=== PATIENT | female | born 1970 | race Caucasian/White ===

== ENCOUNTER 2019-07-25 21:30 | Observation (INO) | payer OTHER ==
--- NOTE | 2019-07-25 22:34 | ED Physician Documentation ---
Fall - HISTORIAN Historian: patient, spouse, paramedics - HPI Stated Complaint: Fall down steps, Lt lateral ribcage pain Chief Complaint: Fall Additional Information: 48 year old female presents via [facility] s/p fall. Patient states that she is a heavy drinker and walked by the stairs and fell down 6 steps; she remembers the fall; no LOC. Patient denies head or neck pain; c/o left rib pain. She states that she drinks every night "ALOT". She states that she works. She smokes more than a pack per day. She has no plans to quit drinking; states that he has been trying to get her to quit but she refuses. No evidence of extremity injury. Onset: just prior to arrival Where: home Context: tripped, lost balance r: moderate Associated Symptoms:: no loss of consciousness Location of Pain/Injury: other (left rib) Injury to Right Extremity: none Injury to Left Extremity: none - ROS CONST: no problems NEURO: denies: dizziness MS/SKIN/LYMPH: denies: weakness EYES/ENT: none CVS/RESP: none GI/: denies: nausea, vomiting - PAST HX Past History: other (Depression, Alcohol abuse) Immunizations: UTD Allergies/Adverse Reactions: Allergies Allergy/AdvReac Type Severity Reaction Status Date / Time No Known Allergies Allergy Verified 07/25/19 21:49 Home Medications: Ambulatory Orders Medication Instructions Recorded Chlorthalidone 25 mg PO DAILY 07/25/19 Gabapentin [Neurontin] 600 mg PO TID 07/25/19 Sertraline HCl 100 mg PO DAILY 07/25/19 - SOCIAL HX Smoking History: greater than 1 pack/day Alcohol Use: heavy Drug Use: none - FAMILY HX Family History: none - VITAL SIGNS Vital Signs: Vital Signs Temp Pulse Resp BP Pulse Ox 91 H 18 137/83 89 L 07/25/19 21:30 07/25/19 21:30 07/25/19 21:30 07/25/19 21:30 - REVIEWED ASSESSMENTS Nursing Assessment Reviewed: Yes Vitals Reviewed: Yes ED Results Lab/Radiology - Radiology Radiology Impressions: EXAMINATION: CT BRAIN W/O CONTRAST HISTORY: PT FELL DOWN 6 STAIRS, ALCOHOL USE (Hx) / ITS.REASON fall down 6 stairs- alcohol use Note time : 07/25/2019 10:30:54 PM User : Esvin Martinez FALL DOWN 6 STAIRS (DICOM Hx) (DICOM Hx) TECHNIQUE: CT of the head was performed without contrast according to standard protocol. COMPARISON: None FINDINGS: No acute intra- or extra-axial fluid collections are identified. The ventricles are of normal size, shape, and morphology. The basilar cisterns are patent. No mass effect or midline shift is seen. The becerra-white matter differentiation is normal. The visible portions of the orbits, paranasal sinuses, and mastoids appear normal. No acute fracture is identified. There is left posterior scalp swelling. IMPRESSION: 1. No acute intracranial process. Electronically signed on Jul 25, 2019 10:35:23 PM FIRESTOPPER INSTALLER by: Randolph George EXAMINATION: CT C-SPINE W/O CONTRAS HISTORY: PT FELL DOWN SIX STAIRS, ALCOHOL USE (Hx) / ITS.REASON fall down 6 stairs- alcohol use Note time : 07/25/2019 10:31:15 PM User : Esvin Martinez FALL DOWN SIX STAIRS (DICOM Hx) (DICOM Hx) TECHNIQUE: CT of the cervical spine was performed without contrast according to standard protocol. 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 The alignment is normal. Vertebral bodies are normal in height without evidence of acute fracture. The craniocervical junction is normal. The intervertebral discs appear normal. No spinal canal stenosis is seen. The facets appear normal. The uncovertebral joints appear normal. No neural foraminal stenosis is seen. No soft tissue abnormality is identified. IMPRESSION: 1. No evidence of acute fracture in the cervical spine. Electronically signed on Jul 25, 2019 10:37:09 PM FIRESTOPPER INSTALLER by: Randolph George EXAMINATION: CT CHEST W/O CONTRAST HISTORY: PT FELL DOWN SIX STAIRS, COMPLAINING OF LEFT SIDED RIB PAIN (Hx) / ITS.REASON fall with rib pain/shortness of breath Note time : 07/25/2019 10:32:19 PM User : Esvin Martinez FALL, LEFT SIDED RIB PAIN (DICOM Hx) (DICOM Hx) TECHNIQUE: CT of the chest was performed without contrast according to standard protocol. COMPARISON: None FINDINGS: The aorta and main pulmonary artery are normal in caliber. The heart size is normal. No lymphadenopathy is seen. There is diffuse hepatic steatosis. There are post-surgical changes in the left upper quadrant. Bone windows demonstrate no suspicious lytic or blastic lesions. There are left 4th through 9th rib fractures anterolaterally. There are left fourth through 12th rib fractures posteriorly. There is a chronic appearing left L1 transverse process fracture. The lungs are clear of focal consolidation. No pleural effusion is identified. There is no evidence of pneumothorax. No suspicious pulmonary nodule is identified. The trachea is patent and midline. IMPRESSION: 1. Left 4th through 12th rib fractures, many of which are segmental. No pneumothorax. 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 nml ENT: nml external inspection, no dental injury, no oral injury, airway nml Resp/CVS: rib tenderness (left sided), wheezes Abdomen: soft, normal bowel sounds Neuro: oriented x3, sensation nml, motor nml, mood/affect nml, sales service assistant nml, sales service assistant symmetrical Skin: color nml Extremities: atraumatic, pelvis stable, hips non-tender, nml ROM, nml color/temp Joint: joints nml, nml ROM - Darby Coma Score Eyes Open: Spontaneous Speech: Oriented Motor: Obeys Commands Discharge Clincal Impression: Multiple rib fractures involving four or more ribs, Fall, Alcohol use Referrals: Elizabeth Caraballo MD [Primary Care Provider] - 2 Days Condition: Stable Decision to Admit: [id number] Decision Time: 23:00
--- NOTE | 2019-07-25 22:39 | Diagnostic Imaging Report ---
PATIENT MR#: [id number] PATIENT PATIENT NAME: CATY ALONZO DATE OF : 1970 REFERRING PHYSICIAN: Roseline Davenport EXAM DATE: 07/25/2019 ACCESSION NUMBER: [id number] EXAM DESCRIPTION: CT BRAIN W/O CONTRAST EXAMINATION: CT BRAIN W/O CONTRAST Note time : 07/25/2019 10:30:54 PM User : Esvin Taylor o FALL DOWN 6 STAIRS (DICOM Hx) (DICOM Hx) TECHNIQUE: CT of the head was performed without contrast according to standard protocol. COMPARISON: None FINDINGS: No acute intra- or extra-axial fluid collections are identified. The ventricles are of normal size, s hape, and morphology. The basilar cisterns are patent. No mass effect or midline shift is seen. The becerra-white matter differentiation is normal. The visible portions of the orbits, paranasal sinuses, and mastoids appear normal. No acute fracture is identified. There is left posterior scalp swelling. IMPRESSION: 1. No acute intracranial process. Read by: Randolph George Transcribed by: Transcribed Date: Electronically signed by: Randolph George Date signed: 07/25/2019 10:38:31 PM
--- NOTE | 2019-07-25 22:41 | Diagnostic Imaging Report ---
PATIENT MR#: [id number] PATIENT PATIENT NAME: CATY ALONZO DATE OF : 1970 REFERRING PHYSICIAN: Roseline Davenport EXAM DATE: 07/25/2019 ACCESSION NUMBER: [id number] EXAM DESCRIPTION: CT C-SPINE W/O CONTRAS EXAMINATION: CT C-SPINE W/O CONTRAS Note time : 07/25/2019 10:31:15 PM User : Esvin cole FALL DOWN SIX STAIRS (DICOM Hx) (DICOM Hx) TECHNIQUE: CT of the cervical spine was performed without contrast according to standard protocol. 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 The alignment is normal. Vertebral bodies are normal in heig ht without evidence of acute fracture. The craniocervical junction is normal. The intervertebral discs appear normal. No spinal canal stenosis is seen. The facets appear normal. The uncovertebral joints appear normal. No neural foramin al stenosis is seen. No soft tissue abnormality is identified. IMPRESSION: 1. No evidence of acute fracture in the cervical spine. Read by: Randolph George Transcribed by: Transcribed Date: Electronically signed by: Randolph George Date signed: 07/25/2019 10:40:30 PM
[2019-07-25] MEDS ORDERED: IPRATROPIUM/ALBUTEROL SULFATE 3 ML AMPUL.NEB NEB ONE (22:43)
--- NOTE | 2019-07-25 22:46 | Diagnostic Imaging Report ---
PATIENT MR#: [id number] PATIENT PATIENT NAME: CATY ALONZO DATE OF : 1970 REFERRING PHYSICIAN: Roseline Davenport EXAM DATE: 07/25/2019 ACCESSION NUMBER: [id number] EXAM DESCRIPTION: CT CHEST W/O CONTRAST EXAMINATION: CT CHEST W/O CONTRAST breath Note time : 07/25/2019 10:32:19 PM User : Adonay Martinez FALL, LEFT SIDED RIB PAIN (DICOM Hx) (DICOM Hx) TECHNIQUE: CT of the chest was performed without contrast according to standard protocol. COMPARISON: None FINDINGS: The aorta and main pulmonary artery are normal in caliber. The heart size is normal. No lymphadenopathy is seen. There is diffuse hepatic steatosis. There are post-surgical changes in the left upper quadrant. Bone windows demonstrate no suspicious lytic or blastic lesions. There are left 4th through 9th rib f ractures anterolaterally. There are left fourth through 12th rib fractures posteriorly. There is a chronic adelina earing left L1 transverse process fracture. The lungs are clear of focal consolidation. No pleural effusion is identified. There is no evidence o f pneumothorax. No suspicious pulmonary nodule is identified. The trachea is patent and midline. IMPRESSION: 1. Left 4th through 12th rib fractures, many of which are segmental. No pneumothorax. Read by: Randolph George Transcribed by: Transcribed Date: Electronically signed by: Randolph George Date signed: 07/25/2019 10:45:30 PM
[2019-07-25] MEDS ORDERED: KETOROLAC TROMETHAMINE 30 MG/1ML VIAL IV ONE (22:51)
[2019-07-25] MEDS ORDERED: ALBUTEROL SULFATE 2.5 MG/3 ML AMPUL.NEB NEB PRN (23:08)
[2019-07-25] MEDS ORDERED: IBUPROFEN 800 MG TABLET PO PRN (23:08)
[2019-07-26] MEDS: MORPHINE SULFATE 2 MG/ML VIAL IV PRN ×4 (00:32→13:38)
[2019-07-26] MEDS: IPRATROPIUM/ALBUTEROL SULFATE 3 ML AMPUL.NEB NEB SCH ×4 (01:10→13:42)
[2019-07-26 02:53] VITALS: BMI 42.3
--- NOTE | 2019-07-26 06:15 | Inpatient Progress Note ---
Subjective - Required Recertification Statement I anticipate X number of days because-include discharge plan: Unknown - Review of Systems Events since last encounter: Patient lying in bed this morning; she has been cooperative with treatment; she has been using the incentive spirometer every hour and she started at 500 and is > 1000; she still has some wheezes in the upper lobes but improvement since ER. We will get PT/OT in with patient today to get up and walk and see how she does with pain. We will repeat chest xray around noon. Patient will continue with scheduled breathing treatments. Discussed with patient if any history of alcohol withdrawals. Patient denies any hx of withdrawal; denies any seizures. She states that she does not drink during the day only in the evening. Will have staff monitor her today. General: Denies: Chills, Fatigue HEENT: Denies: Head Aches, Dysphasia Pulmonary: Denies: Dyspnea Cardiovascular: Other (patient having left rib pain). Denies: Chest Pain Gastrointestinal: Denies: Nausea, Vomiting Genitourinary: Denies: Dysuria Musculoskeletal: Other (left rib pain) Neurological: Denies: Weakness Objective - Exam Vitals and I&O: Vital Signs Temp 98 F 07/26/19 04:00 Pulse 96 H 07/26/19 04:00 Resp 18 07/26/19 04:00 BP 112/61 07/26/19 04:00 Pulse Ox 95 07/26/19 05:00 Intake & Output 07/25/19 07/25/19 07/26/19 11:59 23:59 11:59 Intake Total 100 Balance 100 Weight 113.398 kg 118.841 kg Intake: IV 0 Left Antecubital 0 Oral 100 Other: Voiding Method Toilet # Voids 2 General: Alert, Oriented to Person, Oriented to Place, Oriented to Time, Cooperative, Mild distress, Obese HEENT: Atraumatic, PERRLA, Mouth Mucous membr. moist/Parks, Nose Mucous membr. moist/Parks Neck: Supple, +2 carotid pulse wo bruit Lungs: Normal air movement, Wheezes (coarse) Cardiovascular: Regular rate, Normal S1, Normal S2 Abdomen: Normal bowel sounds, Soft Extremities: Normal pulses, No tenderness/swelling Skin: Normal, Parks, Warm, Dry Neurological: Normal speech, Strength Equal Bilat, Sensation intact Psych/Mental Status: Mental status NL, Mood NL, Appropriate Affect, Intact Judgment Assessment/Plan - Assessment/Plan (1) Alcohol use Status: Acute Current Visit: Yes Assessment: Staff will monitor patient closely for withdrawal sx's. Patient denies history Plan: Monitor (2) Fall Status: Acute Current Visit: Yes Assessment: Patient remains a risk for falls d/t rib fractures and pain Plan: Patient will be up with assist (3) Multiple rib fractures involving four or more ribs Status: Acute Current Visit: Yes Assessment: left side rib pain- coarse wheezes Plan: will continue with IS every hour; duonebs every 4 hours, albuterol prn, PT/OT ordered to get patient up and walking
[2019-07-26 07:14] LABS: BASOPHILS % 0.4 % (0.0-1.5); NEUTROPHILS # 8.4 # k/uL (1.4-7.7)
[2019-07-26 07:15] LABS: eGFR (Non-African) > 60
[2019-07-26] MEDS ORDERED: SODIUM CHLORIDE 0.9 % (FLUSH) 10 ML DISP.SYRIN IV SCH (09:00)
[2019-07-26] MEDS ORDERED: AZITHROMYCIN 250 MG TABLET PO SCH (09:00)
[2019-07-26] MEDS ORDERED: NICOTINE 14mg PATCH.TD24 TD SCH (09:00)
[2019-07-26 13:56] VITALS: BP 146/83
--- NOTE | 2019-07-26 15:43 | Diagnostic Imaging Report ---
PATIENT MR#: [id number] PATIENT PATIENT NAME: CATY ALONZO DATE OF : 1970 REFERRING PHYSICIAN: Roseline Davenport EXAM DATE: 07/26/2019 ACCESSION NUMBER: [id number] EXAM DESCRIPTION: CHEST 2VIEW Exam: Chest two views. History: Rib fractures. Lung curry are adequately aerated. Left lower lobe infiltrates are identified. No pleural effusion s are seen. No pneumothorax is identified. Heart and mediastinal contour are normal. The previously noted left-rpasanna ed fractures are better delineated on the CT performed previously. Impression: Left lower lobe infiltrate without pleural effusion or pneumothorax. The bony abnormalities seen on previous CT are not as well delineated on this study. Read by: Dr. Fletcher Little Transcribed by: Transcribed Date: Electronically signed by: Dr. Fletcher Little Date signed: 07/26/2019 3:42:38 PM
--- NOTE | 2019-07-26 16:36 | Discharge Summary ---
Discharge Summary - Discharge [facility] Admission Date: 07/25/19 Discharge Date: 07/26/19 Discharge To: Home History of Present Illness: 48 year old female presents via [facility] s/p fall. Patient states that she is a heavy drinker and walked by the stairs and fell down 6 steps; she remembers the fall; no LOC. Patient denies head or neck pain; c/o left rib pain. She states that she drinks every night "ALOT". She states that she works. She smokes more than a pack per day. She has no plans to quit drinking; states that he has been trying to get her to quit but she refuses. No evidence of extremity injury. Condition at Discharge: Stable Home Medications: Ambulatory Orders Medication Instructions Recorded Chlorthalidone 25 mg PO DAILY 07/25/19 Gabapentin [Neurontin] 600 mg PO TID 07/25/19 Sertraline HCl 100 mg PO DAILY 07/25/19 Azithromycin [Zithromax] 250 mg PO DAILY #4 tablet 07/26/19 HYDROcodone /APAP 5/325 [[place] 1 each PO Q4 PRN #30 tablet 07/26/19 5/325] Consultations this Visit: None Procedures this Visit: None Allergies/Adverse Reactions: Allergies Allergy/AdvReac Type Severity Reaction Status Date / Time No Known Allergies Allergy Verified 07/25/19 21:49 Discharge Summary: Patient admitted observation for multiple rib fractures; she used incentive spirometer frequently, ambulated with PT/OT, received nebulizer treatments. She will follow up in 2 days for repeat CXR and then go to the clinic for follow up after radiology. Script for [place] will be given for pain, patient encouraged to take deep breaths and cough. - Final Diagnosis (1) Alcohol use Problems: Resolved; educated about alcohol use Right or Left: Right (2) Fall Problems: Stable; Rib fractures Right or Left: Right (3) Multiple rib fractures involving four or more ribs Problems: Patient will have repeat xray on 07/28/19 and come to clinic afterward. Use incentive spirometry frequently, ambulate frequently, take pain medication only as directed, take zithromax as directed. Right or Left: Right
== END 2019-07-26 17:20 | disposition home or self-care (01) ==
LOC: ED 21:30 → SOUTH 23:04
PROVIDERS: ADMIT Nurse Practitioner Family; ATTEND Nurse Practitioner Family
DX: S22.43XA Multiple fractures of ribs, bilateral, initial encounter for closed fracture (principal); F10.99 Alcohol use, unspecified with unspecified alcohol-induced disorder; W10.1XXA Fall (on)(from) sidewalk curb, initial encounter; W01.0XXA Fall on same level from slipping, tripping and stumbling without subsequent striking against object, initial encounter; Y93.01 Activity, walking, marching and hiking; Y92.009 Unspecified place in unspecified non-institutional (private) residence as the place of occurrence of the external cause; Y90.9 Presence of alcohol in blood, level not specified
CPT/HCPCS: 70450; 71046; 71250; 72125; 80053; 85025; 94640; 97161; 97165; 97535; 99218; 99282; 99284; G0378; J1885; J2270; 96374

== ENCOUNTER 2019-07-28 08:45 | Outpatient (CLI) | payer OTHER ==
--- NOTE | 2019-07-28 09:32 | Diagnostic Imaging Report ---
PATIENT MR#: [id number] PATIENT PATIENT NAME: CATY ALONZO DATE OF : 1970 REFERRING PHYSICIAN: Roseline Davenport EXAM DATE: 07/28/2019 ACCESSION NUMBER: [id number] EXAM DESCRIPTION: CHEST 2VIEW PA and lateral chest History: Follow-up infiltrate PA and lateral chest dated July 28, 2019 is compared with July 26, 2019. There is a small region of left basilar infiltrate which is persisting but has mildly improved since prior radiograph. There is a small left pleural effusion. The right lung is clear and heart size is normal. Impression: Small left pleural effusion. Persistent but improving left basilar infiltrate. Read by: Dr. Bria Fitzpatrick Transcribed by: Transcribed Date: Electronically signed by: Dr. Bria Fitzpatrick Date signed: 07/28/2019 9:31:48 AM
--- NOTE | 2019-07-28 09:41 | Diagnostic Imaging Report ---
PATIENT MR#: [id number] PATIENT PATIENT NAME: CATY ALONZO DATE OF : 1970 REFERRING PHYSICIAN: Roseline Davenport EXAM DATE: 07/28/2019 ACCESSION NUMBER: [id number] EXAM DESCRIPTION: RIBS UNILAT 2 VIEWS Left ribs History: Status post fall Four views of the left ribs were obtained which demonstrate no pneumothorax or pleural effusion. How ever, there are acute and mildly displaced fractures involving the lateral left 7th and 9th ribs. There are addition ally mildly displaced fractures involving the posterior left 8th, 9th and 10th ribs. Impression: No pneumothorax. Acute , mildly displaced left rib fractures as described. Read by: Dr. Bria Fitzpatrick Transcribed by: Transcribed Date: Electronically signed by: Dr. Bria Fitzpatrick Date signed: 07/28/2019 9:40:47 AM
== END 2019-07-28 08:50 ==
LOC: RAD 08:45
PROVIDERS: ATTEND Nurse Practitioner Family
DX: J98.11 Atelectasis (principal); S22.32XA Fracture of one rib, left side, initial encounter for closed fracture; X58.XXXA Exposure to other specified factors, initial encounter
CPT/HCPCS: 71046; 71100